=== PATIENT | female | born 1990 | race Caucasian/White ===

== ENCOUNTER 2020-11-28 04:24 | Inpatient (IN) | payer MEDICAID, SELFPAY ==
[2020-11-28 04:27] VITALS: BP 124/78; PULSE 114; RESP 18; TEMP 37; O2SAT 96; BMI 24.0
--- NOTE | 2020-11-28 04:37 | W.ED.PSYCH ---
HPI - Psych General: Chief Complaint: Psychiatric Symptoms Stated Complaint: SEEING AND HEARING THINGS Time Seen by Provider: 11/28/20 04:28 Source: patient and police Mode of arrival: other (police) Limitations: no limitations History of Present Illness: HPI Narrative: 30-year-old female who is here with police under a court ordered 96-hour hold. Patient has a history of bipolar and schizophrenia along with a history of drug use in the past. Patient called the police because she thought someone was trying to break in her home. When police arrived she was yelling at her boyfriend and her mother stating that there were people trying to break in the house and there were people there there is a man there. Mother and boyfriend states there is no been there and she had been hallucinating. She also had stated that she thought the porch had electricity to it and she could feel electricity running through her feet and blistering her feet. She had been talking to people who were not there. Here patient is agitated and is having a very elevated mood. She denies any SI or HI. She states there were people at her house she believes. Associated symptoms: Reports auditory hallucinations and visual hallucinations Review of Systems Const: Denies: fever(s), chills, body aches or change in appetite Eyes: Denies: blurry vision or eye discomfort ENMT: Denies: throat pain or dental pain Card: Denies: chest pain Resp: Denies: dyspnea GI: Denies: abdominal pain, nausea, vomiting or diarrhea : Denies: dysuria Musc: Denies: neck pain or back pain Skin/Breast: Denies: rash Neuro: Denies: headache(s) Psych: Reports: anxiety, visual hallucinations and auditory hallucinations Martin/Lymph: Denies: easy bruising All/Imm: Denies: urticaria Physical Exam Const: COMMON NORMALS: no acute distress, patient oriented x3 and healthy appearing HENMT: COMMON NORMALS: normocephalic and atraumatic HEAD & SCALP: normocephalic and atraumatic Eye: COMMON NORMALS: Equal, round and reactive pupils present and EOMs intact bilaterally PUPIL: Yes Equal, round and reactive pupils present Neck/C-Spine: COMMON NORMALS: full ROM and supple Chest: COMMONS NORMALS: normal inspection of the chest and normal palpation of entire chest wall Resp: COMMON NORMALS: normal respiratory effort, No retractions, No use of accessory muscles and clear to auscultation bilaterally AUSCULTATION: clear to auscultation bilaterally Cardio: COMMON NORMALS: regular rate, regular rhythm and No murmurs present (Cardio) RATE: regular rate RHYTHM: regular rhythm GI: COMMON NORMALS: Normal to inspection, nondistended, normoactive bowel sounds present, Soft to palpation, non-tender and no masses PALPATION: Yes Soft to palpation Extremity: COMMON NORMALS: normal to inspection and full ROM Neuro: COMMON NORMALS: patient oriented x3, moves all extremities and no focal motor deficits Psych: ATTITUDE: Yes bizarre SPEECH: Yes excessive MOOD & AFFECT: Yes elevated mood and Yes anxious THOUGHT CONTENT: Yes Hallucination(s) present Skin: COMMON NORMALS: no rashes or lesions noted and no wounds GENERAL SKIN EXAM: no rashes or lesions noted Course Vital Signs: Vital signs: Vital Signs Temperature 98.6 F 11/28/20 04:27 Pulse Rate 114 H 11/28/20 04:27 Respiratory Rate 18 11/28/20 04:27 Blood Pressure 124/78 11/28/20 04:27 Pulse Oximetry 96 11/28/20 04:27 MDM - Psych MDM Narrative: Medical decision making narrative: Presents here in police custody under 96-hour hold for hallucinations. Patient has had some agitation here but is now calm. Patient's blood work here is normal besides a slightly elevated white count she has no signs of infection. Patient is medically cleared and stable for admission to the psych unit. Lab Data: Labs: Lab Results 11/28/20 11/28/20 Range/Units 04:50 04:50 WBC 16.1 H (4.0-10.0) 10^3/ uL RBC 4.96 (4.1-5.3) 10^6/u L Hgb 14.4 (11.5-15.3) g/dL Hct 42.6 (37.0-47.0) % MCV 85.9 (81-99) fl MCH 29.0 (28.0-34.0) pg MCHC 33.8 (30.0-36.0) g/dL RDW 12.3 (12.1-15.1) % Plt Count 435 H (130-400) 10^3/c mm MPV 9.4 (7.4-10.4) fL Neut % (Auto) 77.5 % Lymph % (Auto) 17.7 % Hopkins % (Auto) 4.3 % Eos % (Auto) 0.0 % Baso % (Auto) 0.3 % Neut # (Auto) 12.49 H (1.8-7.7) 10^3/u L Lymph # (Auto) 2.9 (0.8-4.8) 10^3/u L Hopkins # (Auto) 0.7 (0.2-0.9) 10^3/u L Eos # (Auto) 0.0 (0.0-0.8) 10^3/u L Baso # (Auto) 0.1 (0.0-0.1) 10^3/u L Nucleated RBC % (a uto) 0 % Nucleated RBCs # 0.0 /100WBC Sodium 139 (136-145) mmol/L Potassium 3.7 (3.5-5.1) mmol/L Chloride 104 (98-107) mmol/L Carbon Dioxide 20 L (22-29) mmol/L Anion Gap 18.7 (5-19) BUN 18 (6-20) mg/dL Creatinine 0.6 (0.5-0.9) mg/dL GFR Calculation 117.4 (90-130) mL/min Glucose 104 (65-115) mg/dL Calculated Osmolal ity 290 (285-295) mOsm/k g Calcium 9.2 (8.5-10.5) mg/dL Total Bilirubin 0.5 (0.15-1.2) mg/dL AST 18 (0-32) U/L ALT 15 (0-33) U/L Alkaline Phosphata se 111 H (35-105) IU/L Total Protein 7.8 (6.6-8.7) g/dL Albumin 4.6 (3.5-5.2) g/dL Globulin 3.2 (1.3-4.6) g/dL Salicylates < 0.3 L (3-10) mg/dL Acetaminophen < 5.0 L (10-30) ug/mL Ethyl Alcohol < 10 (0-10) mg/dL Discharge Plan Discharge Patient Disposition: Admitted As Inpatient Clinical Impression: Acute psychosis Condition: Stable Coding Level of Care Code ED Operator Automated Process for Chg Fwd Exam Comprehensive
[2020-11-28 05:05] LABS: Basophils # 0.1 10^3/uL (0.0-0.1); Basophils % 0.3 %; Hematocrit 42.6 % (37.0-47.0); Hemoglobin 14.4 g/dL (11.5-15.3); Lymphocytes # 2.9 10^3/uL (0.8-4.8); Lymphocytes % 17.7 %; Mean Corpuscular HGB Conc 33.8 g/dL (30.0-36.0); Mean Corpuscular Volume 85.9 fl (81-99); Mean Platelet Volume 9.4 fL (7.4-10.4); Monocytes # 0.7 10^3/uL (0.2-0.9); Monocytes % 4.3 %; Neutrophils # 12.49 10^3/uL (1.8-7.7); Neutrophils % 77.5 %; Nucleated Red Blood Cells % 0 %; Platelet Count 435 10^3/cmm (130-400); Red Blood Count 4.96 10^6/uL (4.1-5.3); Red Cell Distribution Width 12.3 % (12.1-15.1); White Blood Count 16.1 10^3/uL (4.0-10.0)
[2020-11-28 05:26] LABS: Alanine Aminotransferase 15 U/L (0-33); Albumin Level 4.6 g/dL (3.5-5.2); Alkaline Phosphatase 111 IU/L (35-105); Anion Gap 18.7 (5-19); Aspartate Amino Transferase 18 U/L (0-32); Blood Urea Nitrogen 18 mg/dL (6-20); Calcium 9.2 mg/dL (8.5-10.5); Carbon Dioxide 20 mmol/L (22-29); Chloride 104 mmol/L (98-107); Globulin 3.2 g/dL (1.3-4.6); Glomerular Filtration Rate 117.4 mL/min (90-130); Glucose 104 mg/dL (65-115); Osmolality Calculated 290 mOsm/kg (285-295); Potassium 3.7 mmol/L (3.5-5.1); Sodium 139 mmol/L (136-145); Total Bilirubin 0.5 mg/dL (0.15-1.2); Total Protein 7.8 g/dL (6.6-8.7)
[2020-11-28 05:27] LABS: Acetaminophen < 5.0 ug/mL (10-30); Alcohol Level < 10 mg/dL (0-10); Salicylate < 0.3 mg/dL (3-10)
[2020-11-28] MEDS: LORazepam 2 mg/mL INJ 1 mL IM (05:30)
[2020-11-28 06:17] LABS: Add Urine Microscopic? YES; Bacteria Urine 2+ /hpf; Bilirubin Urine 1+ (Negative); Blood Urine 3+ (Negative); Calcium Oxalate Crystals Urine 0-4 /hpf; Glucose Urine UA Norm (Normal); Ketones Urine 1+ (Negative); Leukocyte Esterase Urine 1+ (Negative); Mucus Urine 3+ /hpf; Nitrate Urine Positive (Negative); Protein Urine Trace (Negative); RBC Urine 0-4 /hpf (0-2); Specific Gravity, Urine 1.025 (1.005-1.030); Urine Appearance SL Hazy (CLEAR); Urine Color Amber (Yellow); Urobilinogen Urine 4 mg/dL (Negative); pH Urine 5 (5-7)
[2020-11-28 06:18] LABS: Add Urine Culture? No; Amorphous Sediment Urine 2+ /hpf
[2020-11-28 06:21] LABS: Amphetamines Screen Urine Positive (Negative); Barbiturates Screen Urine Negative (Negative); Benzodiazepines Screen Urine Negative (Negative); Cocaine Screen Urine Negative (Negative); Opiate Screen Urine Negative (Negative); PCP Screen Urine Negative (Negative); THC Screen Urine Negative (Negative)
[2020-11-28 06:30] VITALS: BP 108/77; PULSE 77; RESP 18; O2SAT 99
[2020-11-28 14:00] VITALS: RESP 16; TEMP 36.9
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
[2020-11-28] MEDS: mirtazapine 15 mg Tablet PO (21:56)
[2020-11-28 22:00] VITALS: RESP 15
[2020-11-29 06:00] VITALS: RESP 16
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
[2020-11-29 14:00] VITALS: BP 91/59; PULSE 81; RESP 18; TEMP 36.2; O2SAT 97
[2020-11-29] MEDS: nicotine 2 mg Gum BUCCAL ×2 (15:33→17:30)
[2020-11-29] MEDS: ARIPiprazole 10 mg Tablet 5 MG PO (17:25)
[2020-11-29 20:01] VITALS: BP 97/77; PULSE 81; RESP 16; TEMP 36.8; O2SAT 97
[2020-11-29] MEDS: mirtazapine 15 mg Tablet PO (21:38)
[2020-11-30 04:12] LABS: HCG Qualitative Urine. Negative (Negative)
[2020-11-30 06:00] VITALS: BP 97/77; PULSE 81; RESP 16; TEMP 36.8; O2SAT 97; BMI 24.0
[2020-11-30] MEDS: ARIPiprazole 10 mg Tablet 5 MG PO (07:50)
[2020-11-30] MEDS: nicotine 2 mg Gum BUCCAL ×2 (07:50→15:54)
[2020-11-30 14:00] VITALS: BP 111/77; PULSE 87; RESP 15; TEMP 36.6; O2SAT 96
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
[2020-11-30] MEDS: mirtazapine 15 mg Tablet PO (21:09)
[2020-11-30 21:30] VITALS: BP 100/68; PULSE 70; RESP 15; TEMP 37.2; O2SAT 96
[2020-12-01 06:00] VITALS: BP 100/68; PULSE 73; RESP 15; TEMP 37; O2SAT 99
[2020-12-01] MEDS: ARIPiprazole 10 mg Tablet 5 MG PO (07:38)
[2020-12-01] MEDS: nicotine 2 mg Gum BUCCAL (07:38)
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
[2020-12-01] MEDS: nicotine 21 mg Patch 1 PATCH TRANSDERMA (10:01)
[2020-12-01 13:47] VITALS: BP 104/71; PULSE 88; RESP 18; TEMP 36.8; O2SAT 97
[2020-12-01 20:24] VITALS: BP 119/83; PULSE 84; RESP 17; TEMP 37.2; O2SAT 98
[2020-12-01] MEDS: mirtazapine 15 mg Tablet PO (22:04)
[2020-12-02 06:00] VITALS: BP 104/72; PULSE 77; RESP 18; TEMP 37.2; O2SAT 97
[2020-12-02] MEDS: ARIPiprazole 10 mg Tablet 5 MG PO (08:41)
[2020-12-02] MEDS: nicotine 2 mg Gum BUCCAL (08:41)
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
[2020-12-02 10:12] VITALS: BP 104/72; PULSE 77; RESP 18; TEMP 37.2; O2SAT 97
== END 2020-12-02 12:03 | disposition home or self-care (01) | DRG 885 ==
LOC: ER 05:12 → NP 06:17
PROVIDERS: Admitting Provider Psychiatry & Neurology Child & Adolescent Psychiatry; Emergency Provider Emergency Medicine; Visit Provider Psychiatry & Neurology Child & Adolescent Psychiatry
DX: F23 Brief psychotic disorder (principal); F15.151 Other stimulant abuse with stimulant-induced psychotic disorder with hallucinations; F33.9 Major depressive disorder, recurrent, unspecified; F17.200 Nicotine dependence, unspecified, uncomplicated; F41.9 Anxiety disorder, unspecified; G47.00 Insomnia, unspecified; Z65.3 Problems related to other legal circumstances; Z86.59 Personal history of other mental and behavioral disorders
CPT/HCPCS: 80053; 80306; 80307; 81001; 81025; 85025; 96372; 99285; J2060

== ENCOUNTER 2022-01-21 12:35 | Emergency (ER) | payer MEDICAID, SELFPAY ==
[2022-01-21 12:44] VITALS: BP 145/96; PULSE 123; RESP 14; TEMP 37.1; O2SAT 98; BMI 17.2
--- NOTE | 2022-01-21 13:02 | XR_ITS ---
WS: [id number] Exam: XR chest 1V portable [id number] Date/Time of Exam: 01/21/2022 1:02 PM Reason For Exam: dyspnea/cough No priors. The lungs are clear and fully expanded. Normal cardiomediastinal silhouette and regional bony element s. No pleural effusions. Some rotation of the chest. XR/XR chest 1V portable [id number] IMPRESSION: 1. No acute cardiopulmonary finding.
--- NOTE | 2022-01-21 13:03 | ED_ITS ---
HPI - General Adult General: Chief complaint: General Medical Stated complaint: refusing to eat Time Seen by Provider: 01/21/22 12:44 Source: patient Mode of arrival: ambulatory History of Present Illness: 31-year-old female presents to the emergency room complaining of upset stomach and reflux as whenever she eats it she does not feel well and food does not sound good. She has a history of methamphetamine use she is currently incarcerated she denies any medication melena hematemesis coffee-ground emesis denies any hepatitis B or C. No previous evaluations by EGD she does not have food that feels like it is being caught in her stomach. Onset (ago): day(s) Location: abdomen Radiation: flank Severity: mild Pain Consistency: constant Relieving factors: none Exacerbating factors: none Associated symptoms: Deny chest pain, confusion, cough, diaphoresis, decreased appetite, dyspnea, fevers/chills, headache(s), malaise, nausea, rash, palpitations, seizures, short of breath, syncope, vomiting or weakness Treatments prior to arrival: none Review of Systems Const: Denies: fever(s), chills, fatigue, malaise or diaphoresis Card: Denies: chest pain, palpitations or syncope Resp: Denies: dyspnea GI: Reports: abdominal pain; Denies: nausea or vomiting Skin/Breast: Denies: rash Neuro: Denies: headache(s) or confusion [facility] ED PFSH: Medical History (Updated 01/21/22 @ 15:13 by Jeremias Goff DO) Methamphetamine use disorder, mild Surgical History (Updated 01/21/22 @ 13:06 by Jeremias Goff DO) History of tonsillectomy and adenoidectomy Social History Smoking and tobacco status: current some day smoker Physical Exam Const: COMMON NORMALS: no acute distress GENERAL APPEARANCE: cooperative a nd comfortable ORIENTATION/CONSCIOUSNESS: Yes awake, Yes oriented to person, Yes oriented to place and Yes oriented to time HENMT: COMMON NORMALS: normocephalic, atraumatic and hearing grossly normal bilaterally HEAD & SCALP: normocephalic and atraumatic Resp: COMMON NORMALS: normal respiratory effort, No retractions, No use of accessory muscles and clear to auscultation bilaterally AUSCULTATION: clear to auscultation bilaterally Cardio: COMMON NORMALS: regular rate, regular rhythm and No murmurs present (Cardio) RATE: regular rate RHYTHM: regular rhythm GI: COMMON NORMALS: Soft to palpation and No hepatosplenomegaly present A USCULTATION: Yes normoactive bowel sounds PALPATION: Yes Soft to palpation, No Tenderness to palpation present (GI), No Guarding due to palpation present (GI) and Yes No hepatosplenomegaly present Extremity: COMMON NORMALS: normal to inspection, capillary refill normal, no clubbing, cyanosis or edema, no calf tenderness and no pedal edema Neuro: SENSORIUM/ORIENTATION: Yes oriented to person, Yes oriented to place and Yes oriented to time Skin: COMMON NORMALS: no rashes or lesions noted GENERAL SKIN EXAM: no rashes or lesions noted Course Vital Signs: Vital signs: Vital Signs Temperature 98.7 F 01/21/22 15:22 Pulse Rate 78 01/21/22 15:22 Respiratory Rate 14 01/21/22 15:22 Blood Pressure 138/71 01/21/22 15:22 Pulse Oximetry 99 01/21/22 15:22 Oxygen Delivery Me thod 01/21/22 14:49 MDM - General Adult Medical Decision Making Labs unremarkable abdominal exam no acute findings she certainly does not have any peritoneal signs. No pain with percussion or with palpation. Laboratory test negative. She likely has significant dyspepsia probably exacerbated by the stress of her current situation being incarcerated. Is worthwhile to start her on pantoprazole. She asked for special meal privileges discussed with there is really nothing medical that I would recommend that she have altered other than it is advisable at this point that she not have any caffeine or carbonated beverages or tomato-based products as they could worsen her symptoms. Officer who is observing the patient specifically asked if she is fit for confinement medically at this point I would consider her fit for confinement. Medical Records I reviewed the patient's medical records. Lab Data I reviewed the patient's lab results. : 01/21/22 13:33 01/21/22 13:33 Radiology Impressions Chest X-Ray 01/21/22 13:02 IMPRESSION: 1. No acute cardiopulmonary finding. Laboratory Results WBC 7.3 10^3/uL (4.0-10.0) 01/21/22 13:33 RBC 4.68 10^6/uL (4.1-5.3) 01/21/22 13:33 Hgb 13.6 g/dL (11.5-15.3) 01/21/22 13:33 Hct 40.3 % (37.0-47.0) 01/21/22 13:33 MCV 86.1 fl (81-99) 01/21/22 13:33 MCH 29.1 pg (28.0-34.0) 01/21/22 13:33 MCHC 33.7 g/dL (30.0-36.0) 01/21/22 13:33 RDW 12.4 % (12.1-15.1) 01/21/22 13:33 Plt Count 356 10^3/cmm (130-400) 01/21/22 13:33 MPV 9.8 fL (7.4-10.4) 01/21/22 13:33 Neut % (Auto) 60.1 % 01/21/22 13:33 Lymph % (Auto) 34.0 % 01/21/22 13:33 [place] % (Auto) 5.2 % 01/21/22 13:33 Eos % (Auto) 0.1 % 01/21/22 13:33 Baso % (Auto) 0.5 % 01/21/22 13:33 Neut # (Auto) 4.40 10^3/uL (1.8-7.7) 01/21/22 13:33 Lymph # (Auto) 2.5 10^3/uL (0.8-4.8) 01/21/22 13:33 [place] # (Auto) 0.4 10^3/uL (0.2-0.9) 01/21/22 13:33 Eos # (Auto) 0.0 10^3/uL (0.0-0.8) 01/21/22 13:33 Baso # (Auto) 0.0 10^3/uL (0.0-0.1) 01/21/22 13:33 Nucleated RBC % (auto) 0 % 01/21/22 13:33 Nucleated RBCs # 0.0 /100WBC 01/21/22 13:33 Sodium 139 mmol/L (136-145) 01/21/22 13:33 Potassium 4.2 mmol/L (3.5-5.1) 01/21/22 13:33 Chloride 103 mmol/L (98-107) 01/21/22 13:33 Carbon Dioxide 26 mmol/L (22-29) 01/21/22 13:33 Anion Gap 14.2 (5-19) 01/21/22 13:33 BUN 20 mg/dL (6-20) 01/21/22 13:33 Creatinine 0.6 mg/dL (0.5-0.9) 01/21/22 13:33 GFR Calculation 116.6 mL/min (90-130) 01/21/22 13:33 Glucose 89 mg/dL (65-115) 01/21/22 13:33 Calculated Osmolality 290 mOsm/kg (285-295) 01/21/22 13:33 Calcium 9.2 mg/dL (8.5-10.5) 01/21/22 13:33 Magnesium 1.9 mg/dL (1.7-2.3) 01/21/22 13:33 Total Bilirubin 0.7 mg/dL (0.15-1.2) 01/21/22 13:33 AST 11 U/L (0-32) 01/21/22 13:33 ALT 8 U/L (0-33) 01/21/22 13:33 Alkaline Phosphatase 89 U/L (35-105) 01/21/22 13:33 Total Protein 7.5 g/dL (6.6-8.7) 01/21/22 13:33 Albumin 4.2 g/dL (3.5-5.2) 01/21/22 13:33 Globulin 3.3 g/dL (1.3-4.6) 01/21/22 13:33 Lipase 24 U/L (13-60) 01/21/22 13:33 HCG, Qual Negative (Negative) 01/21/22 13:33 Urine Color Yellow (Yellow) 01/21/22 13:55 Urine Appearance Hazy (CLEAR) A 01/21/22 13:55 Urine pH 5 (5-7) 01/21/22 13:55 Ur Specific [place] 1.025 (1.005-1.030) 01/21/22 13:55 Urine Protein Trace (Negative) 01/21/22 13:55 Urine Glucose (UA) Norm (Normal) 01/21/22 13:55 Urine Ketones 3+ (Negative) H 01/21/22 13:55 Urine Blood 3+ (Negative) H 01/21/22 13:55 Urine Nitrate Negative (Negative) 01/21/22 13:55 Urine Bilirubin 1+ (Negative) H 01/21/22 13:55 Urine Urobilinogen 4 mg/dL (Negative) H 01/21/22 13:55 Ur Leukocyte Esterase 1+ (Negative) H 01/21/22 13:55 Urine RBC 0-4 /hpf (0-2) H 01/21/22 13:55 Urine WBC None /hpf (0-5) 01/21/22 13:55 Ur Squamous Epith Cells 0-4 /hpf (0-5) H 01/21/22 13:55 Amorphous Sediment Not Reportable 01/21/22 13:55 Urine Bacteria None /hpf (NONE) 01/21/22 13:55 Urine Mucus 2+ /hpf 01/21/22 13:55 Discharge Plan Discharge Patient Disposition: Home Clinical Impression: Dyspepsia Condition: Stable Prescriptions: New pantoprazole 40 mg tablet,delayed release (DR/EC) 40 mg PO DAILY Qty: 30 0RF Discharge Orders: Discharge ED (Routine); Ordered 01/21/22 Ordered By: Jeremias Goff Discharge Diet: Advance as tolerated Discharge Activity: Resume usual activity Activity Restrictions/Additional Instructions: Avoid large doses of caffeine carbonated beverages spicy foods or tomato based products. Start the pantoprazole once daily. If symptoms persist follow-up with your primary care doctor for further evaluation. Based on medical evaluation today in the emergency room patient is fit for confinement Coding Level of Care Code ED Supervisor Aircraft Maintenance for Hilary Fwd Exam Detailed
[2022-01-21 13:19] VITALS: BP 137/62
[2022-01-21 13:39] LABS: Basophils % 0.5 %; Eosinophils % 0.1 %; Hematocrit 40.3 % (37.0-47.0); Hemoglobin 13.6 g/dL (11.5-15.3); Lymphocytes # 2.5 10^3/uL (0.8-4.8); Mean Corpuscular HGB Conc 33.7 g/dL (30.0-36.0); Mean Corpuscular Hemoglobin 29.1 pg (28.0-34.0); Mean Corpuscular Volume 86.1 fl (81-99); Mean Platelet Volume 9.8 fL (7.4-10.4); Monocytes # 0.4 10^3/uL (0.2-0.9); Monocytes % 5.2 %; Neutrophils % 60.1 %; Nucleated Red Blood Cells % 0 %; Platelet Count 356 10^3/cmm (130-400); Red Blood Count 4.68 10^6/uL (4.1-5.3); Red Cell Distribution Width 12.4 % (12.1-15.1); White Blood Count 7.3 10^3/uL (4.0-10.0)
[2022-01-21] MEDS: ondansetron 2 mg/ML SDV 2 mL 4 MG IVP (13:42)
[2022-01-21] MEDS: sodium chloride 0.9% 1,000 ML 999 ML IV (13:43)
[2022-01-21 13:52] LABS: HCG, Serum Qual Negative (Negative)
[2022-01-21 13:59] LABS: Alanine Aminotransferase 8 U/L (0-33); Albumin Level 4.2 g/dL (3.5-5.2); Alkaline Phosphatase 89 U/L (35-105); Anion Gap 14.2 (5-19); Aspartate Amino Transferase 11 U/L (0-32); Blood Urea Nitrogen 20 mg/dL (6-20); Calcium 9.2 mg/dL (8.5-10.5); Carbon Dioxide 26 mmol/L (22-29); Chloride 103 mmol/L (98-107); Globulin 3.3 g/dL (1.3-4.6); Glomerular Filtration Rate 116.6 mL/min (90-130); Glucose 89 mg/dL (65-115); Lipase 24 U/L (13-60); Magnesium 1.9 mg/dL (1.7-2.3); Osmolality Calculated 290 mOsm/kg (285-295); Potassium 4.2 mmol/L (3.5-5.1); Sodium 139 mmol/L (136-145); Total Bilirubin 0.7 mg/dL (0.15-1.2); Total Protein 7.5 g/dL (6.6-8.7)
[2022-01-21 14:39] LABS: Bilirubin Urine 1+ (Negative); Blood Urine 3+ (Negative); Glucose Urine UA Norm (Normal); Ketones Urine 3+ (Negative); Nitrate Urine Negative (Negative); Protein Urine Trace (Negative); Specific Gravity, Urine 1.025 (1.005-1.030); Urine Appearance Hazy (CLEAR); Urine Color Yellow (Yellow); Urobilinogen Urine 4 mg/dL (Negative); pH Urine 5 (5-7)
[2022-01-21 14:40] LABS: Add Urine Microscopic? YES; Leukocyte Esterase Urine 1+ (Negative)
[2022-01-21 14:49] VITALS: BP 138/71; PULSE 78; O2SAT 99
[2022-01-21 14:55] LABS: Mucus Urine 2+ /hpf; RBC Urine 0-4 /hpf (0-2); Squamous Epithelial Cell Urine 0-4 /hpf (0-5)
[2022-01-21 15:22] VITALS: BP 138/71; PULSE 78; RESP 14; TEMP 37.1; O2SAT 99
== END 2022-01-21 15:23 | disposition home or self-care (01) ==
PROVIDERS: Emergency Provider Family Medicine
DX: R10.13 Epigastric pain (principal); F17.210 Nicotine dependence, cigarettes, uncomplicated
CPT/HCPCS: 71045; 80053; 81001; 83690; 83735; 84703; 85025; 96374; 99284; J2405; J7030